=== PATIENT | male | born 1940 | race Caucasian/White ===

== ENCOUNTER 2019-03-05 22:48 | Inpatient (IN) | payer MEDICARE, BC ==
[~2019-03-05] VITALS: Ht 170.2 cm; Wt 81.5 kg
[~2019-03-05 22:48] MED LIST: EYE DROPS; FLOMAX0.4 MG PO
[2019-03-05 23:16] LABS: BASO # 0.1 (0.0-0.2); BASO % 0.5 % (0.0-2.0); EOS # 0.1 (0.0-0.7); EOS % 0.6 % (0-4.0); GRAN # 8.8 (1.4-6.5); GRAN % 80.8 % (42.2-75.2); HEMATOCRIT 47.9 % (42.0-52.0); HEMOGLOBIN 16.3 g/dl (13.5-18.0); LYMPH # 1.2 (1.2-3.4); LYMPH % 10.6 % (20.0-51.0); MEAN CELL VOLUME 93 fl (80.0-100.0); MEAN CORPUSCULAR HEMOGLOBIN 32 pg (27.0-31.0); MEAN CORPUSCULAR HGB CONC 34 g/dl (33.0-37.0); MEAN PLATELET VOLUME 9.8 fl (7.4-10.4); MONO # 0.8 (0.1-0.6); MONO % 7.3 % (1.7-9.3); PLATELET COUNT 201 K/mm3 (130-400); RED BLOOD COUNT 5.15 M/mm3 (4.20-5.60)
[2019-03-05 23:25] LABS: ALBUMIN 4.6 gm/dL (3.5-5.0); BILIRUBIN,TOTAL 0.6 mg/dL (0.0-1.0); CALCIUM 9.7 mg/dL (8.4-10.2); CREATININE, serum 1.73 (0.66-1.25); POTASSIUM 4.3 mmol/L (3.4-5.0); TOTAL PROTEIN 7.9 gm/dL (6.4-8.2)
[2019-03-05 23:38] LABS: TROPONIN-I 0.096 ng/mL (0.000-0.035)
[2019-03-05] MEDS ORDERED: PRILOSEC 20MG20 MG PO (23:52)
[2019-03-06 01:02] LABS: COLLECTION METHOD CLEAN CATCH
[2019-03-06 01:22] LABS: MUCOUS Present /lpf; PH 6 (5-8); SQUAMOUS EPITHELIAL 0-2 /hpf; URINE APPEARANCE Clear; URINE BACTERIA None Seen /hpf; URINE BILIRUBIN Negative (NEGATIVE); URINE BLOOD 1+ (NEGATIVE); URINE COLOR Yellow; URINE GLUCOSE Negative (NEGATIVE); URINE KETONE Negative (NEGATIVE); URINE LEUKOCYTE ESTERASE Negative (NEGATIVE); URINE NITRATE Negative (NEGATIVE); URINE PROTEIN(semi-quant) 1+ (NEGATIVE); URINE UROBILINOGEN Negative (NEGATIVE)
[2019-03-06 02:09] VITALS: BP 168/82; PULSE 71; TEMP 98
[2019-03-06] MEDS ORDERED: NORCO 325 MG-7.1 TAB PO (02:47)
[2019-03-06 03:28] VITALS: BP 153/70; PULSE 66; TEMP 98.2
[2019-03-06] MEDS ORDERED: MOBIC15 MG PO (03:29)
[2019-03-06 06:08] LABS: BASO % 0.3 % (0.0-2.0); EOS # 0.1 (0.0-0.7); EOS % 1.6 % (0-4.0); GRAN # 5.6 (1.4-6.5); GRAN % 69.8 % (42.2-75.2); HEMATOCRIT 43.4 % (42.0-52.0); HEMOGLOBIN 14.5 g/dl (13.5-18.0); LYMPH # 1.6 (1.2-3.4); LYMPH % 20.2 % (20.0-51.0); MEAN CELL VOLUME 95 fl (80.0-100.0); MEAN CORPUSCULAR HEMOGLOBIN 32 pg (27.0-31.0); MEAN CORPUSCULAR HGB CONC 33 g/dl (33.0-37.0); MEAN PLATELET VOLUME 9.8 fl (7.4-10.4); MONO # 0.6 (0.1-0.6); MONO % 7.8 % (1.7-9.3); PLATELET COUNT 179 K/mm3 (130-400); RED BLOOD COUNT 4.57 M/mm3 (4.20-5.60); REDCELL DISTRIBUTION WIDTH-CV 12.1 % (11.5-14.5)
[2019-03-06 06:26] LABS: ALBUMIN 3.6 gm/dL (3.5-5.0); BILIRUBIN,TOTAL 0.5 mg/dL (0.0-1.0); CALCIUM 8.6 mg/dL (8.4-10.2); CREATININE, serum 1.61 (0.66-1.25); POTASSIUM 4.1 mmol/L (3.4-5.0); TOTAL PROTEIN 6.1 gm/dL (6.4-8.2)
[2019-03-06 06:49] LABS: TROPONIN-I 0.078 ng/mL (0.000-0.035)
[2019-03-06 07:29] VITALS: BP 149/79; PULSE 60; TEMP 98
--- NOTE | 2019-03-06 07:53 | NUR ---
Pt continues to rest in bed. He is awake and A/Ox4. He denies pain or discomfort. IVF are infusing into right wrist without difficulty. Pt remains NPO. Denies any needs at this time.
[2019-03-06] MEDS ORDERED: ASPIRIN 81M81 MG/TA2 PO (11:06)
--- NOTE | 2019-03-06 12:37 | NUR ---
Pt was discharged home from hospital. All discharge instructions and paperwork was reviewed with pt and his , questions answered. Saline lock removed, catheter tip intact. Pt to make f/u appointments once office's open. Pt escorted out of facility by staff.
== END 2019-03-06 12:38 | disposition home or self-care (01) | DRG 693 ==
LOC: COL.ER 22:48 → SURG 03-06 01:40
PROVIDERS: Emergency Medicine; Nurse Practitioner; Nurse Practitioner Family; ADMIT Student in an Organized Health Care Education/Training Program
DX: N13.2 Hydronephrosis with renal and ureteral calculous obstruction (principal); I21.4 Non-ST elevation (NSTEMI) myocardial infarction; J90 Pleural effusion, not elsewhere classified; N17.9 Acute kidney failure, unspecified; K21.9 Gastro-esophageal reflux disease without esophagitis; N18.9 Chronic kidney disease, unspecified; I12.9 Hypertensive chronic kidney disease with stage 1 through stage 4 chronic kidney disease, or unspecified chronic kidney disease; Z87.442 Personal history of urinary calculi; Z79.82 Long term (current) use of aspirin; Z98.42 Cataract extraction status, left eye; Z98.41 Cataract extraction status, right eye
CPT/HCPCS: 99222-AI; A4216; J0696; J1170; J2405; J7030

== ENCOUNTER → 2019-03-28 | Outpatient (CLI) | payer MEDICARE, BC ==
[~2019-03-28] VITALS: Ht 170.3 cm; Wt 79.7 kg
[~2019-03-28] MED LIST changes: +ASPIRIN 81M81 MG/TA2 PO; +ASPIRIN E.C. 8181 MG PO; +COREG 3.123.125 MG/T PO; +MOBIC15 MG PO; +NORCO 325 MG-7.1 TAB PO; +PRILOSEC 20MG20 MG PO
[2019-03-28 10:48] VITALS: BP 159/100; PULSE 61
== END ==
LOC: COL.CARD 10:27
DX: I20.8 Other forms of angina pectoris (principal)
CPT/HCPCS: A9500

== ENCOUNTER → 2019-05-20 | Outpatient (CLI) | payer MEDICARE, BC | LOC: COL.RAD 08:00 | DX: M25.572 Pain in left ankle and joints of left foot (principal) | CPT/HCPCS: J3301; Q9967 ==

== ENCOUNTER → 2019-05-27 | Outpatient (CLI) | payer MEDICARE, BC | LOC: COL.RAD 09:48 | DX: N18.3 Chronic kidney disease, stage 3 (moderate) (principal); N28.1 Cyst of kidney, acquired ==

== ENCOUNTER 2019-06-16 07:55 | Day surgery (SDC) | payer MEDICARE, BC ==
[~2019-06-16] VITALS: Ht 170.2 cm; Wt 79.0 kg
[2019-06-16] VITALS (11 sets, daily range): BP systolic 121–160; BP diastolic 68–83; PULSE 48–79; TEMP 97.7
[2019-06-16] MEDS ORDERED: ZESTRIL 5MG5 MG PO (08:18)
[2019-06-16 08:47] LABS: HEMATOCRIT 43.2 % (42.0-52.0); HEMOGLOBIN 14.5 g/dl (13.5-18.0); MEAN CELL VOLUME 93 fl (80.0-100.0); MEAN CORPUSCULAR HEMOGLOBIN 31 pg (27.0-31.0); MEAN CORPUSCULAR HGB CONC 34 g/dl (33.0-37.0); MEAN PLATELET VOLUME 9.7 fl (7.4-10.4); PLATELET COUNT 202 K/mm3 (130-400); RED BLOOD COUNT 4.63 M/mm3 (4.20-5.60); REDCELL DISTRIBUTION WIDTH-CV 12.4 % (11.5-14.5)
[2019-06-16 08:56] LABS: CALCIUM 9.1 mg/dL (8.4-10.2); CREATININE, serum 0.72 (0.66-1.25); POTASSIUM 4.2 mmol/L (3.4-5.0)
[2019-06-16 09:11] LABS: PROTHROMBIN TIME 11.7 SECONDS (9.7-12.8)
[2019-06-16 09:13] LABS: PARTIAL THROMBOPLASTIN TIME 33.3 SECONDS (26.0-37.0)
--- NOTE | 2019-06-16 09:49 | NUR ---
SEE MERGE FOR MEDICATION ADMINISTRATION TIMES AND INTRA AND POST SEDATION ASSESSMENTS.
[2019-06-16] MEDS ORDERED: LIPITOR 40MG TA40 MG PO (10:12)
--- NOTE | 2019-06-16 10:25 | NUR ---
Pt is back from [employer], at bs, he is gcs 15, p,w,d, reg and unlabored resps. The remainder of 1liter 1/2 ns is infusing with no problem. TR band with [address] to rt wrist. site looks good with no bleeding or hematoma, cms is intact distal. pt aware of poc.
--- NOTE | 2019-06-16 14:00 | NUR ---
TR band has been gradually deflated over the last 11/2 hours. site looks good, no bleeding or hematoma. dressed with bandaid. Pt is ambulatory in room with no problem. DC/rx and f/u instructions reviewed with pt, he denies concerns.
--- NOTE | 2019-06-16 15:00 | NUR ---
iv site was dc'd with cath intact, dressing was applied. Instructions were reviewed again with pt and he and verbalize understanding. Rt radial site remains covered with a bandaid, with no bleeding or hematoma formation. Pt is escorted to exit via wheelchair.
== END 2019-06-16 17:17 | disposition home or self-care (01) ==
LOC: COL.CAR 07:55
PROVIDERS: Internal Medicine Cardiovascular Disease
DX: I25.118 Atherosclerotic heart disease of native coronary artery with other forms of angina pectoris (principal); Z79.82 Long term (current) use of aspirin; I12.9 Hypertensive chronic kidney disease with stage 1 through stage 4 chronic kidney disease, or unspecified chronic kidney disease; N18.3 Chronic kidney disease, stage 3 (moderate); E78.5 Hyperlipidemia, unspecified; Z96.653 Presence of artificial knee joint, bilateral; Z83.3 Family history of diabetes mellitus
CPT/HCPCS: J1644; J2250; J3010

== ENCOUNTER 2019-09-23 15:17 | Day surgery (SDC) | payer MEDICARE, BC ==
[~2019-09-23] VITALS: Ht 167.6 cm; Wt 77.0 kg
[~2019-09-23 15:17] MED LIST changes: +LIPITOR 40MG TA40 MG PO; +ZESTRIL 10MG10 MG PO
[2019-09-23 17:01] VITALS: BP 149/67; PULSE 73; TEMP 99
[2019-09-23] MEDS ORDERED: ZYLOPRIM 300MG300 MG PO (17:06)
[2019-09-23] MEDS ORDERED: COREG 3.123.125 MG/T PO (17:12)
[2019-09-23] MEDS ORDERED: FLOMAX 0.40.4 MG/CAP PO (17:13)
[2019-09-23 21:02] VITALS: TEMP 98.5
[2019-09-23 21:25] VITALS: BP 129/63; PULSE 89
[2019-09-23 21:45] VITALS: BP 141/76; PULSE 95
[2019-09-23 22:00] VITALS: BP 163/72; PULSE 96
[2019-09-23 22:30] VITALS: BP 146/85; PULSE 93
--- NOTE | 2019-09-23 23:30 | NUR ---
Patient arrived on the floor at 5. Patient was able to void a total of 400 urine had few clots and was bloody. Patient ate a sandwich without nausea, no complaints of pain. Patient education completed, no questions at this time at 2300 patient was taken by wheelchair to ED entrance by [facility] staff member. Patient left by private vehicle.
== END 2019-09-23 23:00 | disposition home or self-care (01) ==
LOC: SDCO 15:17
DX: N20.1 Calculus of ureter (principal); M19.90 Unspecified osteoarthritis, unspecified site; I10 Essential (primary) hypertension; I25.10 Atherosclerotic heart disease of native coronary artery without angina pectoris; K21.9 Gastro-esophageal reflux disease without esophagitis; N40.0 Benign prostatic hyperplasia without lower urinary tract symptoms; Z96.653 Presence of artificial knee joint, bilateral; Z83.3 Family history of diabetes mellitus; Z80.3 Family history of malignant neoplasm of breast
CPT/HCPCS: C1769; C1894; C2617; J7120; Q9967

== ENCOUNTER → 2022-05-19 | Outpatient (CLI) | payer MEDICARE, BC ==
[~2022-05-19] MED LIST changes: +FLOMAX 0.40.4 MG/CAP PO; +ZYLOPRIM 300MG300 MG PO
== END ==
LOC: COL.RAD 10:08
DX: M48.02 Spinal stenosis, cervical region (principal); M50.220 Other cervical disc displacement, mid-cervical region, unspecified level; M89.38 Hypertrophy of bone, other site; G56.00 Carpal tunnel syndrome, unspecified upper limb

== ENCOUNTER 2023-12-04 21:27 | Inpatient (IN) | payer MEDICARE, BC ==
[~2023-12-04] VITALS: Ht 167.6 cm; Wt 77.3 kg
[~2023-12-04 21:27] MED LIST changes: +PRINIVIL20 MG PO; +REVATIO20 MG PO; +XARELTO20 MG PO; -ZESTRIL 10MG10 MG PO
[2023-12-04 21:55] LABS: BASO % 0.3 % (0.0-2.0); GRAN # 4.9 K/mm3 (1.4-6.5); GRAN % 83.1 % (42.2-75.2); HEMATOCRIT 46.4 % (42.0-52.0); HEMOGLOBIN 15.6 g/dl (13.5-18.0); LYMPH # 0.8 K/mm3 (1.2-3.4); LYMPH % 14.2 % (20.0-51.0); MEAN CELL VOLUME 98 fl (80.0-100.0); MEAN CORPUSCULAR HEMOGLOBIN 33 pg (27-31); MEAN CORPUSCULAR HGB CONC 34 g/dl (33.0-37.0); MEAN PLATELET VOLUME 10.3 fl (7.4-10.4); MONO # 0.1 K/mm3 (0.1-0.6); MONO % 2.2 % (1.7-9.3); PLATELET COUNT 224 K/mm3 (130-400); RED BLOOD COUNT 4.76 M/mm3 (4.20-5.60); REDCELL DISTRIBUTION WIDTH-CV 12.2 % (11.5-14.5)
[2023-12-04] MEDS ORDERED: dilTIAZem 25 MG/5 ML VIAL IV ONE (22:00)
[2023-12-04 22:10] VITALS: BP 148/89; PULSE 131
[2023-12-04 22:14] LABS: ALANINE AMINOTRANSFERASE 16 U/L (0-55); ALBUMIN 4.1 g/dL (3.4-4.8); ALKALINE PHOSPHATASE 86 U/L (40-150); ANION GAP 12 mmol/L (7-16); AST,SGOT 19 U/L (5-34); BILIRUBIN,TOTAL 0.6 mg/dL (0.2-1.2); BLOOD UREA NITROGEN 23 mg/dL (8-26); CALCIUM 10.5 mg/dL (8.4-10.2); CHLORIDE 109 mEq/L (98-107); CREATININE, serum 1.15 mg/dL (0.72-1.25); GLUCOSE 192 mg/dL (70-99); POTASSIUM 4.3 mEq/L (3.5-4.5); SODIUM 141 mEq/L (136-145); TOTAL PROTEIN 7.5 g/dl (6.2-8.1)
[2023-12-04 22:20] LABS: TROPONIN-I < 0.010 ng/mL (0.00-0.033)
[2023-12-04 22:30] VITALS: BP 133/91; PULSE 103
[2023-12-05] VITALS (18 sets, daily range): BP systolic 110–176; BP diastolic 42–76; PULSE 48–124; TEMP 97.4–98
[2023-12-05] MEDS ORDERED: Heparin 5,000 UNITS/ML 1 ML VIAL IV ONE (00:15)
[2023-12-05] MEDS ORDERED: Ondansetron 4 MG/2 ML VIAL IV PRN (00:15)
[2023-12-05] MEDS ORDERED: Heparin/D5W 250 ML IV SCH (00:15)
[2023-12-05] MEDS ORDERED: Heparin 5,000 UNITS/ML 1 ML VIAL IV PRN (00:15)
[2023-12-05] MEDS ORDERED: oxyCODONE 5 MG TAB PO PRN (00:15)
[2023-12-05] MEDS ORDERED: Morphine 4 MG/ML VIAL IV PRN (00:15)
[2023-12-05] MEDS ORDERED: Magnesium Sulfate 4% 50 ML IV ONE (00:15)
[2023-12-05] MEDS ORDERED: NS 1,000 ML IV ONE (00:15)
[2023-12-05 00:42] LABS: PARTIAL THROMBOPLASTIN TIME 48.4 SECONDS (26.0-37.0)
--- NOTE | 2023-12-05 01:00 | NUR ---
Called Devante, the PA and informed him about the critical result of HepXa which is 2.14, no new orders received at this time.
--- NOTE | 2023-12-05 02:00 | NUR ---
Patient arrived to the floor at 0040 per cart from ED, with Geraldo carrillo, assessed at this time, hospital policies orientated, medrec reviewed, denies further needs, call light and personal items within reach, will continue to monitor.
[2023-12-05] MEDS ORDERED: NORVASC 5MG5 MG/TAB PO (02:18)
--- NOTE | 2023-12-05 07:00 | NUR ---
REPORT RECEIVED FROM VIMAL ALY. PT RESTING IN BED, HEPARIN, CARDIZEM, FLUIDS INFUSING ORDERED TO PERIPHERAL IV SITES TO L AC AND R HAND. PT DENIES NEEDS AT THIS TIME, CALL LIGHT IN REACH.
[2023-12-05] MEDS ORDERED: Allopurinol 300 MG TAB PO SCH (09:00)
[2023-12-05] MEDS ORDERED: Dofetilide 250 MCG CAP PO SCH (09:00)
[2023-12-05 09:06] LABS: CHOLESTEROL RISK RATIO 2.4
[2023-12-05] MEDS ORDERED: NS 1,000 ML IV SCH (09:15)
[2023-12-05] MEDS ORDERED: Lidocaine PF 2% (20 MG/ML) 5 ML VIAL ONE (09:40)
[2023-12-05] MEDS ORDERED: LR 1,000 ML IV SCH (10:53)
--- NOTE | 2023-12-05 11:09 | NUR ---
PATIENT ALERT AND ORIENTED, VSS. PATIENT TRANSPORTED TO [place] [id number] VIA BED. VITAL SIGNS TAKEN ON ARRIVAL, VSS. PLAN OF CARE REVIEWED WITH PT AND SPOUSE AT BEDSIDE, QUESTIONS INVITED. TRANSFER OF CARE REPORT TO VIMAL DÍZA.
[2023-12-05] MEDS ORDERED: TIKOSYN0.5 MG PO (14:28)
[2023-12-05] MEDS ORDERED: Atorvastatin 40 MG TAB PO SCH (21:00)
== END 2023-12-05 16:00 | disposition home or self-care (01) | DRG 310 ==
LOC: COL.ER 21:27 → SURG 23:54
PROVIDERS: Nurse Practitioner; Physician Assistant; ADMIT Internal Medicine
PROC: 5A2204Z Restoration of Cardiac Rhythm, Single (ICD-10-PCS; principal; 2023-12-05)
DX: I48.0 Paroxysmal atrial fibrillation (principal); I25.10 Atherosclerotic heart disease of native coronary artery without angina pectoris; I10 Essential (primary) hypertension; K21.9 Gastro-esophageal reflux disease without esophagitis; E78.5 Hyperlipidemia, unspecified; H26.9 Unspecified cataract; G89.4 Chronic pain syndrome; R79.89 Other specified abnormal findings of blood chemistry; M19.90 Unspecified osteoarthritis, unspecified site; Z96.652 Presence of left artificial knee joint; Z95.5 Presence of coronary angioplasty implant and graft; Z79.01 Long term (current) use of anticoagulants; Z79.82 Long term (current) use of aspirin; Z79.899 Other long term (current) drug therapy; Z23 Encounter for immunization
CPT/HCPCS: J1644; J2704; J3475; J7030; J7120

== ENCOUNTER 2024-01-08 15:22 | Day surgery (SDC) | payer MEDICARE, BC ==
[2024-01-08] VITALS (7 sets, daily range): BP systolic 134–151; BP diastolic 59–89; PULSE 68–81; TEMP 97.9–98.2
[~2024-01-08 15:22] MED LIST changes: +NORVASC 5MG5 MG/TAB PO; +TIKOSYN0.5 MG PO
--- NOTE | 2024-01-08 16:59 | NUR ---
Pt arrived to medical floor from admissions. Admission intake and assessment completed. VSS. Home medications, allergies, and pharmacy reviewed with pt. Pt denies pain rating 0/10. Oriented pt to room, call light and bathroom. Pt reports hiccups for past five days. 20g RAC IV started by VIMAL Good. Pt ambulates indepedently. Pt has no complaints. Call light within reach.
[2024-01-08] MEDS ORDERED: Ondansetron 4 MG/2 ML VIAL ONE (18:54)
[2024-01-08] MEDS ORDERED: Lidocaine PF 2% (20 MG/ML) 5 ML VIAL ONE (18:54)
[2024-01-08] MEDS ORDERED: fentaNYL 50 MCG/ML 2 ML VIAL ONE (18:54)
[2024-01-08] MEDS ORDERED: dexAMETHasone 10 MG/ML VIAL ONE (18:54)
[2024-01-08] MEDS ORDERED: NS 10 ML IV ONE (18:54)
--- NOTE | 2024-01-08 18:58 | NUR ---
FAMILY MEMBER SITTING IN ROOM WITH TV ON WHILE PATIENT IS IN SURGERY. BEDSIDE REPORT COMPLETED WITH MARGE Logan THIS TIME.
[2024-01-08] MEDS ORDERED: HYDROmorphone 1 MG/1 ML SYRINGE [PACU/SDC ONLY] IV PRN (20:00)
[2024-01-08] MEDS ORDERED: Hyoscyamine 0.125 MG Sublingual TAB SL PRN (20:00)
[2024-01-08] MEDS ORDERED: hydrALAZINE 20 MG/ML 1 ML VIAL IV PRN (20:00)
[2024-01-08] MEDS ORDERED: Acetaminophen 325 MG TAB PO PRN (20:00)
[2024-01-08] MEDS ORDERED: droPERidol 2.5 MG/ML 2 ML VIAL IV PRN (20:00)
[2024-01-08] MEDS ORDERED: Ondansetron 4 MG/2 ML VIAL IV PRN ×2 (20:00)
[2024-01-08] MEDS ORDERED: fentaNYL 50 MCG/ML 1 ML SYRINGE/VIAL [PACU/SDC ONLY] IV PRN (20:00)
[2024-01-08] MEDS ORDERED: Naloxone 0.4 MG/ML VIAL IV PRN (20:00)
[2024-01-08] MEDS ORDERED: Iohexol 300 - 10 ML VIAL URETER-R ONE (20:07)
[2024-01-08] MEDS ORDERED: ePHEDrine 50 MG/ML VIAL ONE (20:18)
[2024-01-08] MEDS ORDERED: Lidocaine 2% (20 MG/ML) 20 ML UROJET UR ONE (20:28)
[2024-01-08] MEDS ORDERED: Acetaminophen 500 MG TAB PO SCH (20:47)
--- NOTE | 2024-01-08 21:02 | NUR ---
REPORT RECIEVED FROM SAIGE IN PACU.
--- NOTE | 2024-01-08 21:10 | NUR ---
PATIENT ARRIVED VIA BED TO ROOM #311 FROM PACU AT THIS TIME. PATIENT ALERT AND ORDIENTED X4. VITAL SIGNS STABLE. LR INFUSING INTO LEFT AC WITH NO COMPLICATIONS NOTED. PATIENT REQUESTED JELLO AND WAS GIVEEN JELLO WITH CUP OF ICE WATER. PATIENT TOLERATED WELL. ASSESSMENT AND VITAL SIGNS TAKEN. PATIENT DENIES ANY PAIN. ALL NEEDS MET. BED IN LOW POSITON WITH WHEELS LOCKED WITH RAILS UP X3 AND CALL LIGHT WITHIN REACH. FAMILY MEMBER AT BEDSIDE.
--- NOTE | 2024-01-08 22:45 | NUR ---
PATIENT VOIDED 200 OF CLEAR BLOOD-TINGED URINE. ATE A JELLO AND DRANK A CUP OF ICE WATER. IV SITE REMOVED WITH CATHETER INTACT AND PRESSURE DRESSING APPLIED TO LEFT AC. PATIENT TOLERATED WELL. DISCHARGE INSTRUCTIONS GIVEN AND PATIENT SIGNED PAPERWORK. PATIENT VERBALIZED UNDERSTANDING OF INSTRUCTIONS. PATIENT DENIES ANY PAIN.
--- NOTE | 2024-01-08 22:50 | NUR ---
LORIEllis TRANSPORTED TO ER PARKING LOT VIA WHEELCHAIR BY [facility] AT THIS TIME FOR PATIENT TO GO HOME. FAMILY MEMBER WITH PATIENT. ALL BELONGINGS TAKEN. PATIENT STABLE AND VITAL SIGNS WNL.
== END 2024-01-08 22:50 | disposition home or self-care (01) ==
LOC: SDCO 15:22 → MEDICAL 15:40 → SDCO 18:30
DX: N20.1 Calculus of ureter (principal); Z95.5 Presence of coronary angioplasty implant and graft; Z79.01 Long term (current) use of anticoagulants
CPT/HCPCS: OP; C1769; C2617; J0690; J1100; J2405; J2704; J3010; Q9967